=== PATIENT | male | born 1935 | race Caucasian/White ===

== ENCOUNTER 2017-08-15 13:56 | Emergency (ER) | payer MEDICARE ==
[~2017-08-15] VITALS: Ht 172.7 cm; Wt 66.0 kg
[~2017-08-15 13:56] MED LIST: ALLO100T PO; ASPI-110 PO; AZIT500T2 PO; CEFU1TAB20 PO; CO Q100C9; CODCAP; METO25TA3 PO; OSTETAB3 PO; PANT40TA3 PO; PREV10CA; RAMI1.252 PO; SIMV20TA PO; TIMO5SOL EACH EYE; VITA500C13; [UNRECOGNIZED DRUG - OTHER]
[2017-08-15 13:58] VITALS: BP 154/73; PULSE 66; RESP 16; TEMP 97.9; O2SAT 96
--- NOTE | 2017-08-15 14:20 | PD ---
Physical Exam Date Seen by Provider: Aug 15, 2017 Time Seen by Provider: 14:19 Narrative 82 yo male here for dizziness and palpitations. Going on for a few days. per patient not feeling well. No chest pain or SOB. No head injury. No headache. Just doesnt feel well. Vitals stable in triage. Awaiting bed placement. Data Data Last Documented VS Vital Signs Date Time Temp Pulse Resp B/P (MAP) Pulse Ox O2 Delivery O2 Flow Rate FiO2 08/15/17 13:58 97.9 66 16 154/73 (100) 96 Room Air Orders Orders Electrocardiogram (08/15/17 14:18) Complete Blood Count With Diff (08/15/17 14:18) Comprehensive Metabolic Panel (08/15/17 14:18) Ckmb (Isoenzyme) Profile (08/15/17 14:18) Troponin I (08/15/17 14:18) Prothrombin Time / Inr (Pt) (08/15/17 14:18) Act Partial Throm Time (Ptt) (08/15/17 14:18) Urinalysis - C+S If Indicated (08/15/17 14:18) Magnesium (Mg) (08/15/17 14:18) Thyroid Stimulating Hormone (08/15/17 14:18) MDM Medical Record Reviewed: Yes Supervised Visit with CJ: Antwan Israel Aug 15, 2017 14:20
[2017-08-15 14:37] LABS: BASOPHIL % 0.4 % (0.0-2.0); EOSINOPHIL # 0.1 TH/MM3 (0-0.4); EOSINOPHIL % 2.1 % (0.0-4.0); HEMO FLAGS DIFF FINAL; LYMPH % 24.5 % (9.0-44.0); LYMPHOCYTE # 1.6 TH/MM3 (1.0-4.8); MEAN CELL VOLUME 93.9 FL (80.0-100.0); MEAN CORPUSCULAR HEMOGLOBIN 31.7 PG (27.0-34.0); MEAN CORPUSCULAR HGB CONC 33.8 % (32.0-36.0); MONO % 10.5 % (0.0-8.0); NEUT % 62.5 % (16.0-70.0); PLATELET COUNT 160 TH/MM3 (150-450); RED CELL DISTRIBUTION WIDTH 13.4 % (11.6-17.2); WHITE BLOOD COUNT 6.4 TH/MM3 (4.0-11.0)
[2017-08-15 14:45] VITALS: BP_SYST 167; BP_SYST 171; BP_DIAS 79; BP_DIAS 82; RESP 18; O2SAT 98
[2017-08-15 14:51] LABS: APTT (PATIENT) 27.5 SEC (24.3-30.1); PROTHROMBIN TIME - PATIENT 10.7 SEC (9.8-11.6)
[2017-08-15 15:03] LABS: ALT (GPT) 27 U/L (12-78); ANION GAP 6 MEQ/L (5-15); AST (GOT) 20 U/L (15-37); BICARBONATE 26.1 MEQ/L (21.0-32.0); BLOOD UREA NITROGEN 41 MG/DL (7-18); CHLORIDE 109 MEQ/L (98-107); GLOMERULAR FILTRATION RATE 48 ML/MIN (>89); MAGNESIUM 2.3 MG/DL (1.5-2.5); POTASSIUM 4.3 MEQ/L (3.5-5.1); SODIUM (NA) 141 MEQ/L (136-145)
--- NOTE | 2017-08-15 15:09 | RADRPT ---
EXAM DATE/TIME: 08/15/2017 14:53 [facility] COMPARISON: CHEST PA & LAT, November 04, 2016, 18:20. INDICATIONS : Syncope, dizzy MEDICAL HISTORY : Congestive heart failure. Hypertension Myocardial infarction. SURGICAL HISTORY : CABG. Coronary artery stent. ENCOUNTER: Initial ACUITY: 1 day PAIN SCORE: 0/10 LOCATION: Bilateral chest FINDINGS: The cardiac silhouette is normal in transverse diameter. Median sternotomy wires are present. The melissa gs are hyperinflated but clear. No effusions are identified. The aortic knob is prominent with tortuo sity of the descending thoracic aorta. CONCLUSION: 1. Findings of COPD. No acute cardiopulmonary disease. Calixto Dewey MD on August 15, 2017 at 15:07 Board Certified Radiologist. This report was verified electronically.
[2017-08-15 15:13] LABS: ALKALINE PHOSPHATASE 96 U/L (45-117); TOTAL BILIRUBIN ADULT 0.5 MG/DL (0.2-1.0)
[2017-08-15 15:20] LABS: CREATINE KINASE 40 U/L (39-308)
--- NOTE | 2017-08-15 15:54 | PD ---
HPI Chief Complaint: Dizziness Time Seen by Provider: 15:39 Travel History International Travel<30 days: No Contact w/Intl Traveler<30days: No Traveled to known affect area: No History of Present Illness HPI Patient comes in complaining of feeling dizzy when he awoke this morning and feeling "weird" overall for a few days. Patient denies anything making this better or worse. Patient denies any symptoms currently. Denies any chest pain , shortness breath, fevers, nausea, vomiting, loss change in bowel or bladder, palpitations, headache, change in vision, or numbness or tingling anywhere. Patient has been on amoxicillin for 6 days now for upper respiratory infection and noted one of the side effects of the dizziness is uncertain if this will need causing his symptoms. Patient denies anything like this in the past. PFSH Past Medical History Hx Anticoagulant Therapy: No Arthritis: Yes Cardiac Catheterization: Yes Cardiovascular Problems: Yes High Cholesterol: Yes Chest Pain: Yes Cerebrovascular Accident: Yes Diminished Hearing: No Gout: Yes Genitourinary: Yes Hypertension: Yes Musculoskeletal: Yes Past Surgical History Abdominal Surgery: Yes (hernia repair) Arteriovenous Shunt: No Cardiac Surgery: Yes (cabg in 2001) Coronary Artery Bypass Graft: Yes Coronary Stent: Yes Thoracic Surgery: Yes Other Surgery: Yes (CAROTID ENDAR.) Social History Alcohol Use: No Tobacco Use: No (many yrs ago) Substance Use: No Allergies-Medications (Allergen,Severity, Reaction): Coded Allergies: No Known Allergies (Verified , 11/04/16) Reported Meds & Prescriptions Reported Meds & Active Scripts Active Reported Osteo Bi-Flex Regular Strength (Glucosamine-Chondroitin) 250-200 Tab 1 Tab PO BID Aspirin 81 (Aspirin) 81 Mg Tabdr 81 Mg PO DAILY [Cholestoril] DAILY Simvastatin 20 Mg Tab 20 Mg PO DAILY Ramipril 1.25 Mg Cap 1.25 Mg PO DAILY Vitamin C (Bioflavonoid Products) 1 Chew BID Prevagen (Apoaequorin) 10 Mg Cap 1 Tab DAILY Co Q 10 (Coenzyme Q10 (Ubidecarenone)) 100 Mg Cap DAILY Cod Liver Oil 1 Cap DAILY Metoprolol Tartrate 25 Mg Tab 12.5 Mg PO BID Allopurinol 100 Mg Tab 100 Mg PO DAILY Azithromycin 500 Mg Tab 500 Mg PO DAILY Timolol Opth Drops 0.25 % Soln 1 Drop EACH EYE BID Cefuroxime (Cefuroxime Axetil) 500 Mg Tab 500 Mg PO BID Pantoprazole (Pantoprazole Sodium) 40 Mg Tab 40 Mg PO DAILY Review of Systems Except as stated in HPI: all other systems reviewed are Neg Physical Exam Narrative GENERAL: Well-developed, well nourished, in no acute distress, and non-ill appearing. SKIN: Focused skin assessment warm and dry. HEAD: Atraumatic. Normocephalic. EYES: Pupils equal and round. EOMI. No scleral icterus. No injection or drainage. ENT: No nasal bleeding or discharge. Mucous membranes pink and moist. NECK: Trachea midline. No JVD. Supple. No nuclear rigidity. CARDIOVASCULAR: Regular rate and rhythm. Murmur appreciated. RESPIRATORY: No accessory muscle use. No respiratory distress. Clear to auscultation. Breath sounds equal bilaterally. GASTROINTESTINAL: Abdomen soft, non-tender, nondistended, and no guarding. Hepatic and splenic margins not palpable. Normal bowel sounds 4. No pulsatile mass. MUSCULOSKELETAL: No obvious deformities. No clubbing. No cyanosis. No edema. Full range of motion. Normal gait. NEUROLOGICAL: Awake and alert. No obvious cranial nerve deficits. Motor grossly within normal limits. Normal speech. PSYCHIATRIC: Appropriate mood and affect; insight and judgment normal. Data Data Last Documented VS Vital Signs Date Time Temp Pulse Resp B/P (MAP) Pulse Ox O2 Delivery O2 Flow Rate FiO2 08/15/17 19:19 64 18 148/78 (101) 98 08/15/17 14:45 Room Air 08/15/17 13:58 97.9 Orders Orders Electrocardiogram (08/15/17 14:18) Complete Blood Count With Diff (08/15/17 14:18) Comprehensive Metabolic Panel (08/15/17 14:18) Ckmb (Isoenzyme) Profile (08/15/17 14:18) Troponin I (08/15/17 14:18) Prothrombin Time / Inr (Pt) (08/15/17 14:18) Act Partial Throm Time (Ptt) (08/15/17 14:18) Urinalysis - C+S If Indicated (08/15/17 14:18) Magnesium (Mg) (08/15/17 14:18) Thyroid Stimulating Hormone (08/15/17 14:18) Ct Brain W/O Iv Contrast(Rout) (08/15/17 14:20) Chest, Pa & Lat (08/15/17 14:20) Ecg Monitoring (08/15/17 15:49) Iv Access Insert/Monitor (08/15/17 15:49) Oximetry (08/15/17 15:49) Sodium Chloride 0.9% Flush (Ns Flush) (08/15/17 16:00) Orthostatic Vital Signs (08/15/17 15:49) Sodium Chlorid 0.9% 500 Ml Inj (Ns 500 M (08/15/17 17:30) Labs Laboratory Tests Test 08/15/17 14:20 08/15/17 16:15 White Blood Count 6.4 TH/MM3 Red Blood Count 4.80 MIL/MM3 Hemoglobin 15.2 GM/DL Hematocrit 45.0 % Mean Corpuscular Volume 93.9 FL Mean Corpuscular Hemoglobin 31.7 PG Mean Corpuscular Hemoglobin Concent 33.8 % Red Cell Distribution Width 13.4 % Platelet Count 160 TH/MM3 Mean Platelet Volume 8.1 FL Neutrophils (%) (Auto) 62.5 % Lymphocytes (%) (Auto) 24.5 % Monocytes (%) (Auto) 10.5 % Eosinophils (%) (Auto) 2.1 % Basophils (%) (Auto) 0.4 % Neutrophils # (Auto) 4.0 TH/MM3 Lymphocytes # (Auto) 1.6 TH/MM3 Monocytes # (Auto) 0.7 TH/MM3 Eosinophils # (Auto) 0.1 TH/MM3 Basophils # (Auto) 0.0 TH/MM3 CBC Comment DIFF FINAL Differential Comment Prothrombin Time 10.7 SEC Prothromb Time International Ratio 1.0 RATIO Activated Partial Thromboplast Time 27.5 SEC Blood Urea Nitrogen 41 MG/DL Creatinine 1.41 MG/DL Random Glucose 114 MG/DL Total Protein 7.2 GM/DL Albumin 3.2 GM/DL Calcium Level 8.7 MG/DL Magnesium Level 2.3 MG/DL Alkaline Phosphatase 96 U/L Aspartate Amino Transf (AST/SGOT) 20 U/L Alanine Aminotransferase (ALT/SGPT) 27 U/L Total Bilirubin 0.5 MG/DL Sodium Level 141 MEQ/L Potassium Level 4.3 MEQ/L Chloride Level 109 MEQ/L Carbon Dioxide Level 26.1 MEQ/L Anion Gap 6 MEQ/L Estimat Glomerular Filtration Rate 48 ML/MIN Total Creatine Kinase 40 U/L Troponin I LESS THAN 0.02 NG/ML Thyroid Stimulating Hormone 3rd Gen 2.370 uIU/ML Urine Color YELLOW Urine Turbidity CLEAR Urine pH 5.0 Urine Specific Rush 1.022 Urine Protein NEG mg/dL Urine Glucose (UA) NEG mg/dL Urine Ketones NEG mg/dL Urine Occult Blood NEG Urine Nitrite NEG Urine Bilirubin NEG Urine Urobilinogen LESS THAN 2.0 MG/DL Urine Leukocyte Esterase NEG Urine RBC LESS THAN 1 /hpf Urine WBC LESS THAN 1 /hpf Urine Bacteria RARE /hpf Microscopic Urinalysis Comment CULT NOT INDICATED MDM Medical Decision Making Medical Screen Exam Complete: Yes Emergency Medical Condition: Yes Interpretation(s) EKG reviewed by Dr. Escobar shows sinus rhythm with a ventricular rate of 64. No STEMI. Differential Diagnosis Acute coronary syndrome, pneumonia, URI, electrolyte abnormality, UTI, CVA, orthostatic hypotension, arrhythmia, she is other Narrative Course The patient denied any symptoms of chest pain, SOB/difficulty breathing, palpitations or skipped heartbeats. The patient denied and headache. The patient denied any bloody or tarry stools. There was no evidence to suggest neurologic or cardiac etiology or GIB. The diagnosis and findings were discussed with the patient and the patient was instructed to follow up with their primary physician. Patient in no obvious distress upon re-evaluation. All pertinent laboratory/ Radiology result(s) discussed with patient/family. Patient reports improvement of symptoms as well as IV fluid. Discussed patient with Dr. Escobar prior to discharge, who is in agreement with plan of care and disposition. Any questions/ concerns in reference to patient diagnosis/condition discussed and clarified prior to patient's discharge. Reinforced sheer importance of close follow up with patient's primary physician or primary care clinic. Instructed patient to return to ED immediately, if symptoms return/worsen. Patient showed understanding of above instructions. Further instructions and recommendations were detailed in discharge paperwork. Patient ambulated without difficulty out of ED at discharge. Diagnosis Primary Impression: Dizziness Additional Impression: Dehydration, mild Patient Instructions: Dehydration (ED), Dizziness (ED), General Instructions Additional Instructions: Follow-up with your primary care physician 3-5 days for reevaluation. Return to the emergency department if symptoms get worse. Disposition: 01 DISCHARGE HOME Condition: Stable Miguel Angel Coombs Aug 15, 2017 15:54
[2017-08-15] MEDS ORDERED: SODIUM CHLORIDE 0.9% FLUSH 10 ML FLUSH IVF PRN (16:00)
--- NOTE | 2017-08-15 16:27 | RADRPT ---
EXAM DATE/TIME: 08/15/2017 16:17 [facility] COMPARISON: No previous studies available for comparison. INDICATIONS : Dizziness and irregular heart rate RADIATION DOSE: 34.27 CTDIvol (mGy) MEDICAL HISTORY : Cardiovascular disease. Hypertension. SURGICAL HISTORY : None. ENCOUNTER: Initial ACUITY: 1 day PAIN SCALE: 0/10 LOCATION: cranial TECHNIQUE: Multiple contiguous axial images were obtained of the head. Using automated exposure control and adj ustment of the mA and/or kV according to patient size, radiation dose was kept as low as reasonably a chievable to obtain optimal diagnostic quality images. DICOM format image data is available electro nically for review and comparison. FINDINGS: There is patchy hypodensity in deep white matter structures which appears likely benign and chronic. There is no evidence of intracranial hemorrhage or mass. Nothing to suggest acute infarction. Ventric les are symmetric and normal. Extracranial structures are benign and intact. CONCLUSION: No acute intracranial findings. Wil Damico MD on August 15, 2017 at 16:24 Board Certified Radiologist. This report was verified electronically.
[2017-08-15 16:37] LABS: BACTERIA, URINE RARE /hpf; BLOOD, URINE NEG (NEG); COMMENT (UR) CULT NOT INDICATED; CULTURE IF INDICATED CULT NOT INDICATED; GLUCOSE,URINE NEG (NEG); KETONE, URINE NEG (NEG); NITRITE,URINE NEG (NEG); URINE COLOR YELLOW (YELLW/STRAW)
[2017-08-15] MEDS ORDERED: SODIUM CHLORID 0.9% 500 ML INJ 500 ML IV ONE (17:30)
[2017-08-15 19:19] VITALS: BP 148/78
--- NOTE | 2017-08-16 14:16 | EKG ---
Date Performed: 08/15/2017 Time Performed: 14:29:12 PTAGE: 82 years EKG: Sinus rhythm WITH FIRST DEGREE AV BLOCK WITH OCCASIONAL VENTRICULAR PREMATURE COMPLEXES PROBABLE INFERIOR MYOCARD IAL INFARCTION Inferior T-wave changes are nonspecific Anterior T-wave changes are nonspecific ABNORM AL ECG PREVIOUS TRACING : 11/04/2016 17.50 Compared to prior tracing no significant change DOCTOR: Erick Sevilla Interpretating Date/Time 08/16/2017 14:15:42
== END 2017-08-15 19:21 | disposition home or self-care (01) ==
LOC: NEPC 13:56
DX: R42 Dizziness and giddiness (principal); E86.0 Dehydration; J44.9 Chronic obstructive pulmonary disease, unspecified; I44.0 Atrioventricular block, first degree; I21.9 Acute myocardial infarction, unspecified; R94.31 Abnormal electrocardiogram [ECG] [EKG]; E78.00 Pure hypercholesterolemia, unspecified; M10.9 Gout, unspecified; I10 Essential (primary) hypertension
CPT/HCPCS: 70450; 71020; 80053; 81001; 82550; 83735; 84443; 84484; 85025; 85610; 85730; 93005; 99285